=== PATIENT | female | born 1985 | race Caucasian/White ===

== ENCOUNTER 2018-12-03 12:30 | Emergency (ER) | payer SELFPAY ==
[2018-12-03 12:31] VITALS: BP 134/87; PULSE 70; RESP 17; TEMP 36.8; O2SAT 99; BMI 27.1
--- NOTE | 2018-12-03 12:49 | RAD_ITS ---
STUDY: X-RAY - ACUTE ABDOMINAL SERIES REASON FOR EXAM: Female, 32 years old. 5 day history of abdominal pain. TECHNIQUE: Single view of the chest. Supine, and erect view(s) of the abdomen were obtained. COMPARISON: None. FINDINGS: The lungs are clear and expanded. Normal size heart. Normal mediastinum and chris. Normal visualized pulmonary arteries. Normal visualized aortic arch and descending thoracic aorta. There is a moderate amount of colonic fecal material. The soft tissue structures of the abdomen and pelvis are unremarkable. Normal visualized osseous structures. RAD/Acute Abdomen Inc Chest IMPRESSION: Moderate amount of fecal material is seen in the colon. Electronically Signed: Francisco Pina, at 15:16 EDT , Service support ,
--- NOTE | 2018-12-03 12:52 | ED.DCSUM_ITS ---
- ER Visit Summary Date of Service: 12/03/18 Chief Complaint: Abdominal pain History of Present Illness: The patient is a [address] Johnson. She reports that she has abdominal pain that began approximate 5 days ago. It is a cramping pain that is 7 out of 10 currently and 10 out of 10 at worst. Is w orsened by eating or drinking anything. She had transient relief with Pepto- Bismol. She reports she has been nausea and vomited all day 5 days ago. Did not vomit again until yesterday and she is vomited 6 times since then. No blood or emesis. Her last bowel was 4 days ago. Typically she goes daily. She denies any dysuria frequency. Her last menstrual period was November 12. She does have a history of spicy food intolerance and was on a medication for this in the past. She is currently not on this. She denies any fatty food intolerance. Patient denies sick contacts. Has not been camping out of the country. No possible bad food exposure. Does not drink well water. Patient does report that she had an 10 days ago. She reports she has low no lower abdominal pain. She denies any vaginal bleeding or discharge. She was given an antibiotic. She is unsure of the name of this. States there were 4 pills in an envelope that she took that evening. Physical Examination: Vitals: Stable. Afebrile. General: Well-nourished and well-developed. Head: Normocephalic atraumatic. Neck: Supple, no lymphadenopathy. No JVD. Nontender. Cardiovascular: Regular rate and rhythm. No murmurs. Respiratory: No respiratory distress. Clear to auscultation bilaterally. Abdominal: Soft, mild tenderness palpation in the epigastric region and left upper quadrant, nondistended, normal bowel sounds. No guarding, rebound, or peritoneal signs. Back: Nontender. Extremities: Nontender, no edema. Skin: Normal color, no rash. Neurologic: Alert and oriented ?3. Cranial nerves II through XII are intact. Normal strength and sensation. Psych: Normal affect. Test Results: CBC shows a white count 12.7 with an H&H of 16.7 and 47.4. Chem-7 is more for sodium of 134. LFTs normal. Lipase normal. test is positive. Quantitative hCG is 26. 3 view of the abdomen shows a nonspecific bowel gas pattern with increased stool. Emergency Department Course and Treatment: Patient had an IV placed. She was given a liter normal saline. She was given Toradol and Zofran IV. She was given Bentyl p.o. She has had no vomiting while here. She is resting comfortably. Treatment Plan: Patient will be discharged with Zofran and Bentyl. Instructed to follow-up her primary care physician 1-2 days if not improving. Return to the emergency department for any worsening symptoms. Disposition: To home in improved and stable condition. Impression: 1. Abdominal pain, uncertain cause. 2. Vomiting. This note was generated with [employer] dictation software. It may contain incorrect words, spelling, and punctuation that were not noted in review of the chart prior to signing ED Disposition - Plan for ED Patient: Instructions: ED Abdominal Pain Unkn Cause Prescriptions: Ondansetron [Zofran Odt] 4 mg PO Q8H PRN PRN #10 tablet PRN Reason: Nausea Dicyclomine HCl [Bentyl] 20 mg PO TIDAC #20 capsule Referrals: Amador Johnson MD [Primary Care Provider] - 1-2 Days if not improving
[2018-12-03] MEDS: 0.9% Normal Saline 1,000 ML 1000 ML IV (14:12)
[2018-12-03] MEDS: Ondansetron 4 MG/2 ML Vial IV (14:13)
[2018-12-03] MEDS: Ketorolac 30 MG/ML Syringe IV (14:13)
[2018-12-03 14:22] LABS: Absolute Lymphocyte Count 2.92 X10^3/ul (0.83-4.51); Absolute Neutrophil Count 8.9 X10^3/uL (2.0-7.7); Basophil# 0.02 X10^3/uL; Basophil% 0.2 % (0-1); Eosinophil# 0.24 X10^3/uL; Eosinophils% 1.9 % (0-5); Hematocrit 47.4 % (37-47); Hemoglobin 16.7 g/dl (12.0-15.0); Lymphocyte # 2.92 X10^3/ul (4.0); Mean Corp Hgb Conc 35.2 g/gl (32-36); Mean Corpuscular Volume 90.8 fL (81-99); Monocyte# 0.64 X10^3/uL; Neutrophil # 8.88 X10^3/uL (2.7-7.7); Neutrophil % 69.7 % (47-70); POSITIVE COUNT NO; POSITIVE DIFFERENTIAL NO; POSITIVE MORPHOLOGY NO; Platelet Count 313 K/mm3 (150-450); RBC Distribution Width CV 11.8 % (11.6-14.6); RBC Distribution Width SD 39.2 fl (35.1-43.9); Red Blood Count 5.22 M/mm3 (4.2-5.4); White Blood Count 12.7 K/mm3 (4.4-11.0)
[2018-12-03 14:32] LABS: ALB/GLOB Ratio 1.1 RATIO (0.9-2.4); AST(SGOT) 17 U/L (15-37); Alanine Aminotransfer ALT/SGPT 19 U/L (13-56); Albumin, Serum 3.9 g/dL (3.2-5.0); Alkaline Phosphatase 96 U/L (45-117); Anion Gap 4 (5-15); BUN 13 mg/dL (7-18); BUN/Creat Ratio 16.8 RATIO (10-20); Calcium,Total 8.6 mg/dL (8.5-10.1); Chloride 103 mmol/L (98-107); Creatinine, Serum 0.78 mg/dL (0.55-1.02); EST Glomerular Filtration Rate 92 mL/min (>60); Est Glom Filt Rate - Afr Amer 112 mL/min (>60); Estimated Creatinine Clearance 91.07 ml/min; Globulin 3.7 g/dL (2.2-4.2); Glucose 96 mg/dL (74-106); Lipase 69 U/L (73-393); Protein, Total 7.6 g/dL (6.4-8.2); Sodium Level 134 mmol/L (136-145)
[2018-12-03 15:07] LABS: Pregnancy, Serum, hCG Quali. POSITIVE Negative (0-9 Nonpreg)
[2018-12-03 15:17] LABS: hCG Titer Quant., Serum 24 mIU/mL (<9 non-preg)
[2018-12-03 16:09] VITALS: BP 135/78; PULSE 82; RESP 16; O2SAT 97
== END 2018-12-03 16:09 | disposition home or self-care (01) ==
LOC: ED 13:17
PROVIDERS: Emergency Provider Emergency Medicine; Family Provider Family Medicine; PCP Family Medicine
DX: R10.9 Unspecified abdominal pain (principal); R11.2 Nausea with vomiting, unspecified; K59.00 Constipation, unspecified; Z72.0 Tobacco use
CPT/HCPCS: 74022; 80053; 83690; 84702; 84703; 85025; 96361; 96374; 96375; 99285; J7030; J2405

== ENCOUNTER → 2023-04-11 | Outpatient (CLI) | payer MEDICAID, SELFPAY ==
--- NOTE | 2023-04-11 09:29 | RAD_ITS ---
STUDY: X-RAY - ESOPHAGUS (BARIUM SWALLOW) WITH FLUOROSCOPY REASON FOR EXAM: Female, 37 years old. DYSPHAGIA TECHNIQUE: 18 view(s) of the esophagus were obtained following swallowing of barium. FLUOROSCOPY TIME (if supplied): (41 seconds) minutes/seconds. 25.96 mGy COMPARISON: None. FINDINGS: There is no demonstrated esophageal foreign body. There is no demonstrated stricture or mucosal abnormality. Normal gastroesophageal junction, without a demonstrated hiatal hernia. The patient ingested a 12 mm tablet of barium without any difficulty. Normal visualized aortic arch and descending thoracic aorta. Normal visualized pulmonary parenchyma. Normal visualized osseous structures of the thorax. RAD/Esophagus Dual Contrast IMPRESSION: Normal plain film x-ray examination (barium swallow) of the esophagus. Electronically Signed: Francisco Pina MD at 10:44 EDT ,
== END | disposition home or self-care (01) ==
LOC: RAD 09:27
PROVIDERS: PCP Family Medicine; Referring Provider Otolaryngology; Visit Provider Otolaryngology
DX: R13.10 Dysphagia, unspecified (principal)
CPT/HCPCS: 74221

== ENCOUNTER 2023-04-18 16:41 | Emergency (ER) | payer MEDICAID, SELFPAY ==
[2023-04-18 16:42] VITALS: BP 160/82; PULSE 93; RESP 14; TEMP 36.6; O2SAT 100; BMI 29.4
--- NOTE | 2023-04-18 17:06 | NURSING ---
NO OLD EKGS
[2023-04-18 17:13] LABS: Absolute Neutrophil Count 7.1 X10^3/uL (2.0-7.7); Basophil# 0.04 X10^3/uL; Basophil% 0.3 % (0-1); Eosinophil# 0.31 X10^3/uL; Eosinophils% 2.7 % (0-5); Hematocrit 42.8 % (37-47); Hemoglobin 14.2 g/dL (12.0-15.0); Lymphocyte % 29.4 % (19-41); Mean Corp Hgb Conc 33.2 g/dL (32-36); Mean Corpuscular Hgb 30.3 pg (27.0-32.0); Mean Corpuscular Volume 91.5 fL (81-99); Mean Platelet Vol. 9.8 fl (6.2-12.0); Monocyte# 0.66 X10^3/uL; Monocyte% 5.7 % (0-10); NRBC Flagged by Analyzer 0 % (0-5); Neutrophil # 7.13 X10^3/uL (2.7-7.7); Neutrophil % 61.6 % (47-70); Platelet Count 324 K/mm3 (150-450); RBC Distribution Width CV 12.8 % (11.6-14.6); RBC Distribution Width SD 43.1 fl (35.1-43.9); Red Blood Count 4.68 M/mm3 (4.2-5.4); White Blood Count 11.6 K/mm3 (4.4-11.0)
--- NOTE | 2023-04-18 17:13 | RAD_ITS ---
STUDY: X-RAY CHEST REASON FOR EXAM: Female, 37 years old. cp TECHNIQUE: Single AP portable view of the chest. COMPARISON: 12/03/2018. FINDINGS: The lungs are clear and expanded. There is no demonstrated pleural abnormality. Normal size heart. Normal mediastinum and chris. Normal visualized pulmonary arteries. Normal visualized aortic arch and descending thoracic aorta. Normal visualized thoracic spine. Normal visualized ribs, clavicles, and shoulders. There is no demonstrated abnormality of the visualized soft tissue structures of the upper abdomen. RAD/Chest 1 View (Portable) IMPRESSION: Normal x-ray examination of the chest. Electronically Signed: Ajay Arnett MD at 17:52 EDT ,
[2023-04-18 17:33] LABS: AST(SGOT) 12 U/L (15-37); Alanine Aminotransfer ALT/SGPT 18 U/L (13-56); Albumin, Serum 3.8 g/dL (3.2-5.0); Alkaline Phosphatase 108 U/L (45-117); Anion Gap 4 (5-15); BUN 13 mg/dL (7-18); Calcium,Total 8.6 mg/dL (8.5-10.1); Chloride 105 mmol/L (98-107); Creatinine, Serum 0.87 mg/dL (0.55-1.02); EST Glomerular Filtration Rate 79 mL/min (>60); Est Glom Filt Rate - Afr Amer 96 mL/min (>60); Estimated Creatinine Clearance 77.94 ml/min; Globulin 3.8 g/dL (2.2-4.2); Glucose 149 mg/dL (74-106); Potassium 3.6 mmol/L (3.5-5.1); Protein, Total 7.6 g/dL (6.4-8.2); Sodium Level 136 mmol/L (136-145); Troponin-I HS 4 pg/mL (3.0-54.0)
--- NOTE | 2023-04-18 17:39 | ED.VIS.CHEST ---
HPI History of Present Illness Chief Complaint: Chest Pain Narrative Narrative: Patient presents with sharp stabbing chest pain for the past few hours. She has had this before but she put her pulse ox on noticed her heart rate was in the 40s. She has noticed this heart rate in the 40s for some time and she is due to have a Holter monitor starting on Monday for 30 days. She did not pass out. She did not feel lightheaded. She has no recent fevers or chills. Pain did not go into her back, no pleuritic component. No lower extreme edema or calf pain [facility] Medical History (Updated 04/18/23 @ 17:[address] Issa Lipscomb MD) Anxiety GERD (gastroesophageal reflux disease) Home Medications dicyclomine 10 mg capsule 20 mg (2 x 10 mg) PO TIDAC ##20 12/03/18 [Rx Last Taken Unknown] ondansetron 4 mg disintegrating tablet 4 mg PO Q8H PRN PRN Nausea #10 tabs 12/03/18 [Rx Last Taken Unknown] Allergy/AdvReac Type Severity Reaction Status Date / Time No Known Allergies Allergy Verified 04/18/23 16:42 Social History Smoking Status: Current every day smoker tobacco type: cigarettes ROS ROS ED ROS Narrative Past medical history: Reviewed Medications: Reviewed Social history: Noncontributory Review of systems: All systems negative except as indicated General: No fever Eyes: No visual changes ENT: No upper airway congestion, normal voice Neck: No neck pain Cardiovascular: As in HPI Respiratory: No shortness of breath or cough Gastrointestinal: No abdominal pain, nausea vomiting or diarrhea Genitourinary: No dysuria Musculoskeletal: Denies myalgias no difficulty with ambulation Skin: No rash Neurological: No memory loss, confusion or any focal weakness Psych: She tells me she feels anxious EXAM Physical Exam Narrative Exam Narrative: Physical exam General: Well nourished, Well developed, No Acute Distress Head: Normocephalic, Atraumatic Eyes: Conjunctiva not pale ENT: Moist mucous membranes Neck: Supple, Nontender, No lymphadenopathy Cardiovascular: Regular rate, Regular rhythm Respiratory: No distress, CTA bilaterally Abdomen: Soft, Nontender, Nondistended Back: Nontender, Normal Inspection. Negative for: CVA tenderness Extremities: Nontender, No edema Skin: Normal color, No rash Neurological: Alert, Normal Strength, Normal Sensation Psychological: Normal affect Const Vital Signs: 04/18/23 16:42 Temperature 97.8 F Temperature Source Temporal Pulse Rate 93 Respiratory Rate 14 Blood Pressure 160/82 H Blood Pressure Mean 108 Pulse Ox 100 Oxygen Delivery Method Room Air MDM MDM MDM Narrative Medical decision making narrative: EKG: Sinus rhythm with a rate of 92. Normal MT and QTc intervals. No ischemic changes. Interpreted by emergency doctor Independent interpretation of tests: Telemetry: Sinus with a rate in the 90s without ectopy Chest x-ray: Portable bedside x-ray does not show any acute abnormality. MDM: Patient does not have any signs symptoms or risk factors for DVT therefore a PE study was not obtained. She has normal sinus rhythm now appears well and has a normal cardiac work-up I am not worried about a cardiac etiology especially not an ischemic etiology for her symptoms. Chest x-ray does not show any pneumothorax pneumonia or any other signs that would explain her symptoms. She is reassured she is now asymptomatic and I will discharge her in stable condition. She does not meet criteria for admission. I am unsure about the etiology of her reported bradycardia, I believe she can follow-up for her Holter monitor but again does not meet admission criteria. Lab Data Labs: Laboratory Results - last 24 hr 04/18/23 16:54 WBC 11.6 H RBC 4.68 Hgb 14.2 Hct 42.8 MCV 91.5 MCH 30.3 MCHC 33.2 RDW Std Deviation 43.1 RDW Coeff of Demario 12.8 Plt Count 324 MPV 9.8 Immature Gran % (Auto) 0.300 Neut % (Auto) 61.6 Lymph % (Auto) 29.4 [place] % (Auto) 5.7 Eos % (Auto) 2.7 Baso % (Auto) 0.3 Absolute Neuts (auto) 7.1 Absolute Lymphs (auto) 3.40 Nucleated RBC % 0 Sodium 136 Potassium 3.6 Chloride 105 Carbon Dioxide 27.0 Anion Gap 4 L BUN 13 Creatinine 0.87 Estim Creat Clear Calc 77.94 Est GFR (MDRD) Af Amer 96 Est GFR (MDRD) Non-Af 79 BUN/Creatinine Ratio 15.0 Glucose 149 H Calcium 8.6 Total Bilirubin 0.10 L AST 12 L ALT 18 Alkaline Phosphatase 108 Troponin I High Sens 4 Total Protein 7.6 Albumin 3.8 Globulin 3.8 Albumin/Globulin Ratio 1.0 Discharge Plan Triage Chief Complaint: Chest Pain ED Provider: Issa Lipscomb Dx/Rx/DC Orders Clinical Impression: Bradycardia, Chest pain Instructions: ED Chest Pain, Noncardiac Prescriptions: No Action ondansetron 4 MG tablet 4 mg PO Q8H PRN PRN (Reason: Nausea) Qty: 10 0RF dicyclomine 10 MG capsule 20 mg PO TIDAC Qty: 20 0RF Primary Care Provider: Amador Johnson Referrals: Amador Johnson MD [Primary Care Provider] - Disposition Disposition: Home, Self Care
[2023-04-18 17:52] VITALS: BP 130/79; PULSE 81
== END 2023-04-18 17:52 | disposition home or self-care (01) ==
PROVIDERS: Emergency Provider Emergency Medicine; PCP Family Medicine; Visit Provider Emergency Medicine
DX: R00.1 Bradycardia, unspecified (principal); R07.9 Chest pain, unspecified; K21.9 Gastro-esophageal reflux disease without esophagitis; F17.210 Nicotine dependence, cigarettes, uncomplicated
CPT/HCPCS: 71045; 80053; 84484; 85025; 93005; 99283; A4216

== ENCOUNTER 2023-04-24 20:59 | Emergency (ER) | payer MEDICAID, SELFPAY ==
[2023-04-24 21:01] VITALS: BP 147/78; PULSE 79; RESP 18; TEMP 36.4; O2SAT 99; BMI 28.8
--- NOTE | 2023-04-24 21:11 | ED.RN ---
PT DECLINED A EKG FOR NOW,WANTS TO SEE
== END 2023-04-24 21:50 | disposition left against medical advice (07) ==
LOC: ED 22:09
PROVIDERS: PCP Family Medicine
DX: Z53.21 Procedure and treatment not carried out due to patient leaving prior to being seen by health care provider (principal)